=== PATIENT | female | born 1940 | race Two or more races ===

== ENCOUNTER → 2018-11-22 | Outpatient (CLI) | payer MEDICARE, OTHER, MEDICAID | END | disposition home or self-care (01) | LOC: HKI 09:29 | DX: L03.115 Cellulitis of right lower limb (principal); I10 Essential (primary) hypertension; I73.9 Peripheral vascular disease, unspecified; J45.909 Unspecified asthma, uncomplicated; L30.9 Dermatitis, unspecified; I87.2 Venous insufficiency (chronic) (peripheral) | CPT/HCPCS: 73564 ==

== ENCOUNTER → 2018-12-15 | Outpatient (CLI) | payer MEDICARE, OTHER | END | disposition home or self-care (01) | LOC: HKI 14:50 | DX: M25.561 Pain in right knee (principal) | CPT/HCPCS: 73564 ==